=== PATIENT | male | born 1940 | race Caucasian/White ===

== ENCOUNTER 2023-01-25 10:01 | Day surgery (SDC) | payer OTHER ==
[2023-01-23 10:57] LABS: Potassium 3.9 mEq/L (3.5-5.1)
--- NOTE | 2023-01-24 11:58 | EKG ---
Test Date: 2023-01-23 Test Time: 10:40:43 [employer]izer: ET MEASUREMENT RESULTS: Intervals: Rate: 72 ME: 158 QRSD: 90 QT: 398 QTc: 435 [place]: P: 53 ME: 158 QRS: 57 T: 61 INTERPRETIVE STATEMENTS: Sinus rhythm with premature supraventricular complexes with occasional premature ventricular complexes Otherwise normal ECG No previous ECG available for comparison Electronically Signed On 01-24-23 11:56:00 CDT by Carroll Ramirez
[2023-01-25] MEDS: Ringers Lactate 1,000 ML IV ONE ×2 (10:23→12:00)
[2023-01-25] MEDS ORDERED: propofoL 200 MG/20 ML VIAL IV ONE (11:29)
[2023-01-25] MEDS ORDERED: LIDOCAINE 1% MPF 5 ML VIAL ONE (11:29)
[2023-01-25 14:55] VITALS: BP 132/90; TEMP 97.3; O2SAT 98
== END 2023-01-25 13:23 | disposition home or self-care (01) ==
LOC: OR 10:01
PROVIDERS: ATTEND Surgery
PROC: 0DBL8ZX Excision of Transverse Colon, Via Natural or Artificial Opening Endoscopic, Diagnostic (ICD-10-PCS; 2023-01-25)
PROC: 0DBH8ZX Excision of Cecum, Via Natural or Artificial Opening Endoscopic, Diagnostic (ICD-10-PCS; principal; 2023-01-25 12:15)
DX: Z12.11 Encounter for screening for malignant neoplasm of colon (principal); K57.30 Diverticulosis of large intestine without perforation or abscess without bleeding; K64.8 Other hemorrhoids; D12.0 Benign neoplasm of cecum
CPT/HCPCS: 93005; 80048; 36415; 88305; 45380; J2704; J2001; J7120